=== PATIENT | male | born 1995 | race Caucasian/White ===

== ENCOUNTER 2017-12-04 15:27 | Emergency (ER) | payer BC ==
--- NOTE | 2017-12-04 15:56 | CPEKG ---
Heart Rate: 149 RR Interval: 403 QRSD Interval: 102 QT Interval: 312 QTC Interval: 491 QRS [place]: 115 T Wave [place]: -2 EKG Severity - ABNORMAL ECG - EKG Impression: JUNCTIONAL TACHYCARDIA EKG Impression: RIGHT AXIS DEVIATION EKG Impression: PROLONGED QT INTERVAL Electronically Signed By: Prosper Leo 05-Dec-2017 07:25:23
[2017-12-04] MEDS ORDERED: LORazepam 2 MG/ML INJ ONE (15:57)
[2017-12-04] MEDS ORDERED: NS 1,000 ML IV ONE ×2 (15:59→16:39)
[2017-12-04] MEDS ORDERED: LORazepam 2 MG/ML INJ IVP ONE ×2 (15:59→16:14)
[2017-12-04 16:10] LABS: PLATELET COUNT 479 10^3/uL (150-400)
--- NOTE | 2017-12-04 16:13 | EDPHY ---
General - History Smoking Status: Current some day smoker Time Seen by Provider: 12/04/17 15:50 Narrative: CHIEF COMPLAINT: Knee pain HISTORY OF PRESENT ILLNESS: Patient complains of left knee pain. He thinks this started earlier today but he is not entirely sure. It is painful in the anterior portion of the left knee. It is mild to moderate pain. He is able to ambulate. He does not recall any direct trauma or injury. It has hurt in the past but not to this level. No numbness or tingling. No weakness. No low back pain or injury. The patient admits to ingestion of alcohol marijuana. He does not recall how much alcohol ingested today. He says that the marijuana he smoked was from a friend who typically obtained this from a dispensary. took an Uber to the emergency department. He is feeling somewhat anxious but has no chest pain or shortness of breath. No abdominal pain. No other associated complaints or modifying factors. REVIEW OF SYSTEMS: Ten systems reviewed and are negative unless otherwise noted in the HPI PCP: None locally SPECIALISTS: None PAST MEDICAL HISTORY: Denies any significant medical history. Orthopedic injuries only PAST SURGICAL HISTORY: No recent surgeries SOCIAL HISTORY: Admits to occasional alcohol and marijuana use. FAMILY HISTORY: Noncontributory EXAMINATION General Appearance: Alert, no distress. Well-developed well-nourished. Anxious Head: normocephalic, atraumatic Eyes: Pupils equal and round, no conjunctival pallor or injection ENT, Mouth: Mucous membranes moist. Uvula midline. Airway patent Neck: Normal inspection, supple, non-tender Respiratory: Lungs are clear to auscultation. No wheezing rhonchi or crackles Cardiovascular: Tachycardic rate. Regular rhythm. No murmur. Good signs of perfusion distally Gastrointestinal: Abdomen is soft and nontender Back: non-tender, no bony abnormalities Neurological: GCS 15. Cranial nerves 2-12 grossly intact. A&O, nonfocal, normal gait. Strength is symmetric in all 4 limbs. No pronator drift. Normal [id number]. Skin: Warm and dry, no rash. No petechiae or purpura Extremities: Mild tenderness to the left anterior knee. No tenderness of the left popliteal fossa. No tenderness of the left foot, ankle or hip. Range of motion of the knees symmetric. No pain with passive dorsiflexion of the left ankle. No asymmetry of the calves. No pedal edema. Psychiatric: Anxious and exhibiting paranoia. Hesitant to provide any information to us. DIFFERENTIAL DIAGNOSES: Including but not limited to alcohol intoxication, marijuana overdose, illicit substance use, accidental overdose, knee sprain, knee fracture MDM: 3:55 p.m. Tachycardia with reported alcohol marijuana ingestion. He is also complaining of left knee pain with no signs of trauma or injury. Neurovascular intact distally. He appears anxious but awake and alert and no altered mentation. His lungs are clear. He denies any other illicit substance use. I have ordered IV Ativan, IV fluid, chest x-ray and laboratory studies. EKG is currently being obtained. 4:30 p.m. X-ray of the knee is unremarkable. Chest x-ray as read by me is unremarkable. I have re-evaluated the patient or 15 min and his tachycardia has improved but only by [address] Sanabria has been involved and discussing this patient. We agree with repeat Ativan and continuation of IV fluid. We also discussed DVT study of the lower extremity given the normal x-ray. 5:00 p.m. At this time I have discussed the case with Dr. Sanabria, and he will assume care of the patient. Please see his note for further care and disposition. I have re-evaluated the patient this time PE remains tachycardic but awake and alert. We continued IV fluid resuscitation and Ativan. He has not yet provided a urine sample. SUPERVISION: Patient was evaluated and examined in conjunction with my secondary supervising physician as documented. We have both examined the patient. (Juaquin Lepe) Discussion: This is a young healthy male who presents with left knee pain of unknown etiology. His knee is normal on exam, displaying no signs of trauma or infection , and he is able to walk on it without significant difficulty. Unexpectedly, the patient arrives to the ED with severe tachycardia. He admits to alcohol and marijuana use, and thinks someone may have given him an additional unknown drug, but this is not even really a complaint, nor the reason he presented to the ED. Given this unexpected finding, we performed additional imaging and workup to exclude DVT, trauma and possible electrolyte abnormality. ECG reveals sinus tach. The patient was treated with IVNS and ativan, and his HR while asleep gradually returned to normal. On re-evaluation, the patient has no complaints and would like to go home. His HR when awake is still moderately elevated, but he declines any further evaluation. I suspect he has likely used some sort of illicit stimulant. He is AAOx3 and understands risks of refusal of further testing. He is going to call for a friend to come pick him up. ( Maged Sanabria) - Objective Vital Signs: Initial Vital Signs Temperature (C) 37.3 C 12/04/17 15:29 Heart Rate 174 H 12/04/17 15:29 Respiratory Rate 18 12/04/17 15:29 Blood Pressure 166/114 H 12/04/17 15:29 O2 Sat (%) 96 12/04/17 15:29 O2 Delivery Mode Room Air Allergies/Adverse Reactions: No Known Allergies Allergy (Unverified 09/20/15 15:20) Home Medications: Medication Instructions Recorded NK [No Known Home Meds] 12/05/17 Laboratory Results: Laboratory Results 12/04/17 16:00 12/04/17 16:00 Medications Given: Discontinued Medications Sodium Chloride (Ns) 1,000 mls @ 0 mls/hr IV EDNOW ONE; Wide Open PRN Reason: Protocol Stop: 12/04/17 16:00 Last Admin: 12/04/17 16:01 Dose: 1,000 mls Sodium Chloride (Ns) 1,000 mls @ 0 mls/hr IV EDNOW ONE; Wide Open PRN Reason: Protocol Stop: 12/04/17 16:40 Last Admin: 12/04/17 17:00 Dose: 1,000 mls Lorazepam (Ativan Injection) 2 mg IVP EDNOW ONE Stop: 12/04/17 16:00 Last Admin: 12/04/17 16:00 Dose: 2 mg Lorazepam (Ativan Injection) 2 mg IVP EDNOW ONE Stop: 12/04/17 16:15 Last Admin: 12/04/17 16:32 Dose: 2 mg Departure - Departure Disposition: Home, Routine, Self-Care Clinical Impression: Leg pain, Polysubstance abuse, Tachycardia Condition: Good Instructions: Additional Information Additional Instructions: Follow-up with your primary care doctor within 48 hours. Return to the ED for chest pain, shortness of breath or other concerns. Referrals: NONE *PRIMARY CARE P,. [Primary Care Provider] - As per Instructions
[2017-12-04 20:53] VITALS: BP 122/74; PULSE 104; RESP 18; TEMP 97.9; O2SAT 98
--- NOTE | 2017-12-07 10:25 | CPEKG ---
Heart Rate: 120 RR Interval: 500 P-R Interval: 188 QRSD Interval: 102 QT Interval: 316 QTC Interval: 447 P [place]: 64 QRS [place]: 81 T Wave [place]: 29 EKG Severity - BORDERLINE ECG - EKG Impression: SINUS TACHYCARDIA EKG Impression: PROBABLE LEFT ATRIAL ABNORMALITY EKG Impression: ST ELEV, PROBABLE NORMAL EARLY REPOL PATTERN Electronically Signed For: Kira Juares 07-Dec-2017 10:27:12
== END 2017-12-04 20:45 | disposition home or self-care (01) ==
DX: M79.605 Pain in left leg (principal); R00.0 Tachycardia, unspecified; F10.129 Alcohol abuse with intoxication, unspecified; F12.10 Cannabis abuse, uncomplicated; E86.9 Volume depletion, unspecified; F17.200 Nicotine dependence, unspecified, uncomplicated
CPT/HCPCS: 80305; 96374; G0480; J2060